=== PATIENT | male | born 1980 | race Caucasian/White ===

== ENCOUNTER 2018-03-17 21:26 | Emergency (ER) | payer OTHER ==
[~2018-03-17] VITALS: Ht 172.7 cm; Wt 64.6 kg
[~2018-03-17 21:26] MED LIST: CEPH500C3 PO; SULF1TAB47 PO
[2018-03-17 21:28] VITALS: BP 147/97; PULSE 88; RESP 18; TEMP 98.9; O2SAT 97
[2018-03-17] MEDS ORDERED: TRAM50TA PO (22:54)
[2018-03-17] MEDS ORDERED: CIPR-9 PO (22:54)
--- NOTE | 2018-03-17 22:57 | PD ---
HPI Chief Complaint: Flank/Kidney Pain Time Seen by Provider: 22:47 Travel History International Travel<30 days: No Contact w/Intl Traveler<30days: No Traveled to known affect area: No History of Present Illness HPI This patient complains of left testicle pain. Patient 3 days. Severity is moderate. No penile discharge. No fever no injury. No vomiting or diarrhea. No hematuria or dysuria. No alleviating factors PFSH Past Medical History Medical History: Denies Significant Hx Asthma: Yes Diminished Hearing: No Musculoskeletal: Yes (CHRONIC NECK PAIN) Past Surgical History Genitourinary Surgery: Yes (tube in bladder to look as an infant) Social History Alcohol Use: Yes (OCC) Tobacco Use: Yes (1 PPD) Substance Use: No Allergies-Medications (Allergen,Severity, Reaction): Coded Allergies: codeine (Verified Adverse Reaction, Intermediate, VOMITING, 03/17/18) Reported Meds & Prescriptions Reported Meds & Active Scripts Active Tramadol (Tramadol HCl) 50 Mg Tab 50 Mg PO Q6H PRN Cipro (Ciprofloxacin HCl) 500 Mg Tab 500 Mg PO BID 7 Days Review of Systems General / Constitutional: No: Fever HENT: No: Headaches Cardiovascular: No: Chest Pain or Discomfort Physical Exam Narrative GASTROINTESTINAL: Abdomen soft, non-tender, nondistended. Positive bowel sounds. No hepato-splenomegaly, or palpable masses. No guarding. SKIN: Focused skin assessment reveals no rash or ulcers. Skin is warm and dry. Palpation shows no induration or nodules. : Testicles have no redness or warmth or swelling. They are freely mobile. No clinical suspicion of torsion. No penile lesions. There is epididymis tenderness on the left side. He says it reproduces his pain complaint. Data Data Last Documented VS Vital Signs Date Time Temp Pulse Resp B/P (MAP) Pulse Ox O2 Delivery O2 Flow Rate FiO2 03/17/18 21:28 98.9 88 18 147/97 (114) 97 MDM Medical Decision Making Medical Screen Exam Complete: Yes Emergency Medical Condition: Yes Medical Record Reviewed: Yes Differential Diagnosis Epididymitis, torsion, hydrocele Narrative Course I have reviewed the patient's electronic medical record. Patient presentation seems consistent with left-sided epididymitis. Given his age over 35 as per up-to-date recommendations, I am instituting Cipro therapy I wrote him some tramadol. Should he worsen he should recheck otherwise follow-up with his physician or urologist Diagnosis Primary Impression: Left epididymitis Additional Instructions: The patient was warned about potential sedation for the medications they will receive on prescription. Follow-up with primary care physician or urology Med/Other Pt SpecificInfo: Prescription(s) given Scripts Tramadol (Tramadol) 50 Mg Tab 50 MG PO Q6H Y for PAIN, #12 TAB 0 Refills Prov: Chang Aguirre MD 03/17/18 Ciprofloxacin (Cipro) 500 Mg Tab 500 MG PO BID for Infection for 7 Days, #14 TAB 0 Refills Prov: Chang Aguirre MD 03/17/18 Disposition: 01 DISCHARGE HOME Condition: Stable Chang Aguirre MD Mar 17, 2018 22:57
== END 2018-03-17 23:32 | disposition home or self-care (01) ==
LOC: PHED 21:26
DX: N45.1 Epididymitis (principal); J45.909 Unspecified asthma, uncomplicated; F17.200 Nicotine dependence, unspecified, uncomplicated; Z79.899 Other long term (current) drug therapy; Z88.5 Allergy status to narcotic agent
CPT/HCPCS: 99283

== ENCOUNTER 2018-07-12 20:54 | Inpatient (IN) ==
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
[2018-07-12 21:32] LABS: Baso # (Auto) 0.1 th/mm3 (0.0-0.2); Baso % (Auto) 0.9 % (0.0-2.0); Eos # (Auto) 0.3 th/mm3 (0.0-0.4); Eos % (Auto) 2.3 % (0.0-4.0); Hematocrit 45.4 % (39.0-51.0); Hemoglobin 15.8 gm/dL (13.0-17.0); Lymph # (Auto) 3.6 th/mm3 (1.0-4.8); Lymph % (Auto) 30.9 % (9.0-44.0); Mean Corpuscular HGB Conc 34.7 % (32.0-36.0); Mean Corpuscular Hemoglobin 31.8 pg (27.0-34.0); Mean Corpuscular Volume 91.7 fL (80.0-100.0); Mean Platelet Volume 8.8 fL (7.0-11.0); Mono % (Auto) 8.9 % (0.0-8.0); Neut # (Auto) 6.7 th/mm3 (1.8-7.7); Platelet Count 322 th/mm3 (150-450); Red Blood Count 4.95 mil/mm3 (4.50-5.90); Red Cell Distribution Width 12.8 % (11.6-17.2); White Blood Count 11.7 th/mm3 (4.0-11.0)
--- NOTE | 2018-07-12 21:41 | XR ---
EXAM DATE: 07/12/2018 9:18 PM EDT AGE/SEX: 38 years / Male INDICATIONS: Chest pain. CLINICAL DATA: This is the patient's initial encounter. Patient reports that signs and symptoms have been present for 1 day and indicates a pain score of 9/10. MEDICAL/SURGICAL HISTORY: None. None. COMPARISON: No prior exams available for comparison. FINDINGS: A single AP view of the chest demonstrates the lungs to be symmetrically aerated without evidence of mass, infiltrate or effusion. The cardiomediastinal contours are unremarkable. Osseous structures a re intact. CONCLUSION: No acute cardiopulmonary process. Electronically signed by: Frankie Martínez MD 07/12/2018 9:40 PM EDT
[2018-07-12 21:49] LABS: Chloride 103 meq/L (98-107); Potassium 3.6 meq/L (3.5-5.1); Sodium 139 meq/L (136-145)
[2018-07-12 21:52] LABS: Calcium 8.9 mg/dL (8.5-10.1)
[2018-07-12 21:53] LABS: Albumin 4.1 g/dL (3.4-5.0); Anion Gap 12 meq/L (5-15); Blood Urea Nitrogen 7 mg/dL (7-18); Carbon Dioxide 24.5 meq/L (21.0-32.0); Glucose,Random 95 mg/dL (74-106)
[2018-07-12 21:56] LABS: Activated Partial Thrombo Time 25.7 sec (24.3-30.1); Alanine Aminotransferase 22 U/L (12-78); Aspartate Aminotransferase 22 U/L (15-37); Glomerular Filtration Rate Greater Than 89 mL/min (>89); INR 1.1 Ratio; Prothrombin Time 10.8 sec (9.8-11.6)
[2018-07-12 21:57] LABS: Total Protein 7.4 g/dL (6.4-8.2)
[2018-07-12 21:59] LABS: Alkaline Phosphatase 100 U/L (45-117)
[2018-07-12 22:18] LABS: Bilirubin,Urine Negative (Negative); Clarity,Urine Clear (Clear); Glucose,Urine (UA) Negative (Negative); Leukocyte Esterase,Urine Negative (Negative); Nitrite,Urine Negative (Negative); Specific Gravity,Urine Less/Equal 1.005 (1.002-1.035); Urobilinogen,Urine 0.2 mg/dL (Less than 2)
[2018-07-12 22:20] LABS: Color,Urine Straw (Yellw/Straw)
[2018-07-12] MEDS ORDERED: Nitroglycerin Drip Premix 50 MG/250 ML BOTTLE IV.CONT PRN (22:28)
[2018-07-12] MEDS ORDERED: Acetaminophen 325 MG Tablet PO PRN (22:32)
[2018-07-12] MEDS ORDERED: Morphine Inj 4 MG/ML Vial IV.PUSH ONE (22:53)
[2018-07-13 04:25] LABS: Creatine Kinase 157 U/L (39-308)
[2018-07-13 04:48] LABS: Baso # (Auto) 0.2 th/mm3 (0.0-0.2); Baso % (Auto) 1.6 % (0.0-2.0); Eos # (Auto) 0.4 th/mm3 (0.0-0.4); Eos % (Auto) 4.3 % (0.0-4.0); Hematocrit 43.7 % (39.0-51.0); Hemoglobin 14.7 gm/dL (13.0-17.0); Lymph # (Auto) 4.2 th/mm3 (1.0-4.8); Lymph % (Auto) 40.7 % (9.0-44.0); Mean Corpuscular HGB Conc 33.7 % (32.0-36.0); Mean Corpuscular Hemoglobin 31.7 pg (27.0-34.0); Mean Platelet Volume 8.2 fL (7.0-11.0); Mono # (Auto) 0.9 th/mm3 (0.0-0.9); Mono % (Auto) 8.3 % (0.0-8.0); Neut # (Auto) 4.6 th/mm3 (1.8-7.7); Neut % (Auto) 45.1 % (16.0-70.0); Platelet Count 261 th/mm3 (150-450); Red Blood Count 4.65 mil/mm3 (4.50-5.90); Red Cell Distribution Width 12.5 % (11.6-17.2); White Blood Count 10.3 th/mm3 (4.0-11.0)
[2018-07-13 04:53] LABS: Chloride 107 meq/L (98-107); Potassium 3.6 meq/L (3.5-5.1); Sodium 144 meq/L (136-145)
[2018-07-13 05:09] LABS: Anion Gap 10 meq/L (5-15); Blood Urea Nitrogen 6 mg/dL (7-18); Calcium 8.1 mg/dL (8.5-10.1); Carbon Dioxide 26.7 meq/L (21.0-32.0); Creatine Kinase 205 U/L (39-308); Glomerular Filtration Rate Greater Than 89 mL/min (>89); Glucose,Random 84 mg/dL (74-106)
[2018-07-13 07:19] VITALS: TEMP 98.7
[2018-07-13 09:50] VITALS: BP 114/79
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
[2018-07-13] MEDS ORDERED: Sod Chloride 0.9% Inj 1,000 ML IV.CONT SCH (11:00)
[2018-07-13 11:03] VITALS: PULSE 70; RESP 23; O2SAT 95
--- NOTE | 2018-07-13 11:40 | CT ---
EXAM DATE: 07/13/2018 10:49 AM EDT AGE/SEX: 38 years / Male INDICATIONS: Syncope. CLINICAL DATA: This is the patient's initial encounter. Patient reports that signs and symptoms have been present for 1 day and indicates a pain score of 0/10. MEDICAL/SURGICAL HISTORY: Asthma. None. RADIATION DOSE: 53.69 CTDI (mGy) COMPARISON: No prior exams available for comparison. TECHNIQUE: CT of the head without contrast. Using automated exposure control and adjustment of the mA and/or kV according to patient size, radiation dose was kept as low as reasonably achievable to ob tain optimal diagnostic quality images. DICOM format image data is available electronically for revi ew and comparison. FINDINGS: Cerebrum: The ventricles are normal for age. No evidence of midline shift, mass lesion, hemorrhage or acute infarction. No extraaxial fluid collections are seen. Posterior Fossa: The cerebellum and brainstem are intact. The 4th ventricle is midline. The cerebe llopontine angle is unremarkable. Extracranial: The visualized portion of the orbits is intact. Skull: The calvaria is intact. No evidence of skull fracture. CONCLUSION: Negative CT Head non contrast. Electronically signed by: Frankie Lim MD 07/13/2018 11:39 AM EDT
--- NOTE | 2018-07-13 19:30 | ECG ---
Date Performed: 07/13/2018 Time Performed: 08:53:18 PTAGE: 38 years EKG: SINUS BRADYCARDIA BORDERLINE ECG PREVIOUS TRACING : 07/13/2018 03.07 Since the previous tracing, no significant change noted DOCTOR: Akil Fairbanks Interpretating Date/Time 07/13/2018 19:29:25
--- NOTE | 2018-07-13 19:43 | ECG ---
Date Performed: 07/13/2018 Time Performed: 03:07:36 PTAGE: 38 years EKG: Sinus rhythm NORMAL ECG PREVIOUS TRACING : 07/12/2018 22.57 Since the previous tracing, no significant change noted DOCTOR: Akil Fairbanks Interpretating Date/Time 07/13/2018 19:42:22
--- NOTE | 2018-07-13 19:53 | ECG ---
Date Performed: 07/12/2018 Time Performed: 22:57:34 PTAGE: 38 years EKG: Sinus rhythm NORMAL ECG PREVIOUS TRACING : 07/12/2018 21.02 Since the previous tracing, no significant change noted DOCTOR: Akil Fairbanks Interpretating Date/Time 07/13/2018 19:52:26
--- NOTE | 2018-07-13 20:02 | ECG ---
Date Performed: 07/12/2018 Time Performed: 21:02:43 PTAGE: 38 years EKG: Sinus rhythm INDETERMINATE AXIS ATYPICAL ECG INTERPRETATION BASED ON A DEFAULT AGE OF 41 YEARS NO PREVIOUS TRACING DOCTOR: Akil Fairbanks Interpretating Date/Time 07/13/2018 20:00:13
== END 2018-07-13 12:40 | disposition left against medical advice (07) ==
LOC: PHED 20:54 → PHEDA 22:33 → PHICU 23:25
PROVIDERS: ADMIT Hospitalist; ATTEND Hospitalist